=== PATIENT | female | born 1995 | race Caucasian/White ===

== ENCOUNTER 2019-08-21 12:49 | Emergency (ER) | payer SELFPAY ==
[~2019-08-21] VITALS: Ht 165.1 cm; Wt 82.0 kg
[2019-08-21 13:24] LABS: BASOPHILS % 0.6 % (0.0-2.0); EOSINOPHILS % 0.2 % (0.0-5.0); HEMOGLOBIN. 12.9 g/dL (12.0-16.0); MEAN CORPUSCULAR HEMOGLOBIN 26.7 pg (28.0-32.0); MEAN CORPUSCULAR VOLUME 80.9 fL (81.0-99.0); MEAN PLATELET VOLUME 6.9 fl (7.4-10.4); MONOCYTES % 2.9 % (2.0-8.0); NEUTROPHILS % 83.3 % (40.0-76.0); PLATELET 442 x1000/uL (130-400); RED BLOOD CELL COUNT 4.82 mill/uL (4.2-5.4); RED CELL DISTRIBUTION WIDTH 14.1 % (11.6-14.6)
[2019-08-21 13:32] LABS: CHLORIDE 107 mEq/L (98-107)
[2019-08-21 13:37] LABS: ETHANOL BLOOD < 10 mg/dL
[2019-08-21 15:23] VITALS: BP 117/67
== END 2019-08-21 15:30 | disposition home or self-care (01) ==
LOC: ER 12:57
DX: T59.811A Toxic effect of smoke, accidental (unintentional), initial encounter (principal); R00.0 Tachycardia, unspecified; J70.5 Respiratory conditions due to smoke inhalation; Y92.9 Unspecified place or not applicable
CPT/HCPCS: 36415; 80320; 99283; G0480